=== PATIENT | female | born 1965 | race African-American/Black ===

== ENCOUNTER → 2017-01-18 | Outpatient (CLI) | payer BC ==
[2017-01-18 15:18] LABS: BASO % 1 % (0-3); EOS % 1 % (0-3); HEMATOCRIT 40.4 % (36.0-47.0); LYMPH # 2.1 x10^3/uL (1.0-4.8); LYMPH % 31 % (24-48); MEAN CORPUSCULAR HEMOGLOBIN 30 pg (25-35); MEAN CORPUSCULAR HGB CONC 35 g/dL (31-37); MEAN CORPUSCULAR VOLUME 87 fL (79-100); MONO % 8 % (0-9); NEUT % 60 % (31-73); PLATELET COUNT 246 x10^3/uL (140-400); RED BLOOD COUNT 4.66 x10^6/uL (3.50-5.40); RED CELL DISTRIBUTION WIDTH 13.6 % (11.5-14.5); WHITE BLOOD COUNT 6.8 x10^3/uL (4.0-11.0)
[2017-01-18 15:22] LABS: BILIRUBIN,URINE NEGATIVE (NEG); GLUCOSE,URINE NEGATIVE (NEG); NITRITE,URINE NEGATIVE (NEG); PROTEIN,URINE NEGATIVE (NEG-TRACE); UROBILINOGEN,URINE 0.2 mg/dL (0.2 mg/dL)
[2017-01-18 15:33] LABS: BACTERIA,URINE 0 /HPF (0-FEW); SQUAMOUS EPITHELIAL CELL,UR FEW /LPF; WBC,URINE RARE /HPF (0-4)
--- NOTE | 2017-01-18 15:39 | EKG ---
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
[2017-01-18 15:45] LABS: ALBUMIN/GLOBULIN RATIO 1.2 (1.0-1.7); CREATININE 0.9 mg/dL (0.6-1.0); GFR 79.6; TOTAL BILIRUBIN 0.5 mg/dL (0.2-1.0); TOTAL PROTEIN 7.3 g/dL (6.4-8.2)
--- NOTE | 2017-01-18 16:40 | RAD ---
PA and lateral chest radiographs 01/18/2017 Clinical history: Preoperative evaluation prior to hysterectomy. PA and lateral digital radiographs of the chest were obtained. No previous studies are available for comparison. The cardiac silhouette is normal in size configuration. The thoracic aorta is mildly tortuous. Soft tissue fullness is seen within the left hilum/mediastinum. Further evaluation with a CT scan of the chest with contrast is recommended. No acute pulmonary infiltrate is seen. No pleural effusion or pneumothorax is noted. Mild degenerative changes are seen involving the thoracic spine. Impression: Soft tissue fullness is seen within the left hilum/left mediastinum. Further evaluation with a CT scan of the chest with contrast is recommended.
[2017-01-19 05:19] LABS: ESTRADIOL LEVEL <5.0 pg/mL (.); FSH 53.7 mIU/mL (.); LUTEINIZING HORMONE 27.9 mIU/mL (.)
== END | disposition home or self-care (01) ==
LOC: SURGPAT 14:25
PROVIDERS: ATTEND Obstetrics & Gynecology
DX: Z01.818 Encounter for other preprocedural examination (principal)
CPT/HCPCS: 36415; 71020; 80053; 81001; 82670; 83001; 83002; 85027; 93005

== ENCOUNTER → 2017-01-26 | Outpatient (CLI) | payer BC ==
[~2017-01-26] MED LIST: CONTRAST GIVEN MC PRN; IOHEXOL 300 MG/ML 100ML VIAL. IV ONE
--- NOTE | 2017-01-26 11:17 | KCIC ---
CT CHEST W/CONTRAST dated 01/26/2017 9:00 AM Indication: Soft tissue fullness seen on recent chest x-ray Comparison: January 18, 2017 chest radiographs. Technique: After bolus of intravenous contrast, CT imaging was performed of the chest. Multiplanar reconstruction images submitted. One or more of the following individualized dose reduction techniques were utilized for this examination: 1. Automated exposure control 2. Adjustment of the mA and/or kV according to patient size 3. Use of iterative reconstruction technique. Findings: Corresponding with the radiographic findings, there is a fairly large somewhat heterogeneously enhancing and probably partially necrotic mass in the AP window apparently emanating from the lateral aspect of the mediastinum rather than in the lung parenchyma. This measures up to 5 cm AP by 4 cm transverse by 5.3 cm cc. This is near the left lateral margin of the aortic arch although no clear communication, thin intervening fat plane. This is also near the left lateral margin of the main pulmonary artery and also the anterior margin of the left main pulmonary artery also with intervening fat plane. No other significantly enlarged chest lymphadenopathy is identified. There is very small dependent left pleural effusion. There is a small 0.4 cm left upper lobe nodule axial image 18 series 2, slightly indistinct peripheral margin. There is small 0.3 cm groundglass nodule left upper lobe axial image 13. The major airways are patent. There is no pneumothorax. Thoracic aortic caliber is within normal limits, no intraluminal flap. There is a 2 cm hypodense lesion of the left lobe of the liver, density measurements of a cyst. There is also probable cyst in the right renal hilum. There is a small sclerotic focus of the posterior right T9 vertebral body otherwise too small to characterize although may be a small bone island. There is no significant abnormality of the visualized thyroid gland. IMPRESSION: 1. There is a large heterogeneously enhancing and probably necrotic mass in the AP window centered in the lateral aspect of the mediastinum. Primary concern would be for malignancy such as from lymphoma or metastasis, less typical consideration such as nerve sheath tumor. There is very small left pleural effusion. There are couple of very small left upper lobe pulmonary nodules. Electronically signed by: Rafat Galindo MD (01/26/2017 11:13 AM)
== END | disposition home or self-care (01) ==
LOC: KCIC CT 09:01
PROVIDERS: ATTEND Obstetrics & Gynecology
DX: J90 Pleural effusion, not elsewhere classified (principal)
CPT/HCPCS: 71260; Q9967

== ENCOUNTER → 2017-02-23 | Outpatient (CLI) | payer BC ==
[2017-02-23] VITALS (15 sets, daily range): BP systolic 95–133; BP diastolic 58–75
[~2017-02-23] VITALS: Ht 158.8 cm; Wt 73.5 kg
[~2017-02-23] MED LIST changes: -CONTRAST GIVEN MC PRN; +GELATIN SPONGE SIZE 12-7MM SPONGE. ONE; -IOHEXOL 300 MG/ML 100ML VIAL. IV ONE; +LIDOCAINE 1% / SOD BICARB 8.4% 20 ML VIAL. IJ ONE; +MIDAZOLAM HCL/PF 2 MG/2 ML VIAL. IV ONE; +MIDAZOLAM HCL/PF 2 MG/2 ML VIAL. ONE; +fentaNYL PF VIAL 100 MCG/2 ML VIAL IV ONE; +fentaNYL PF VIAL 100 MCG/2 ML VIAL ONE
[2017-02-23 07:27] LABS: BASO % 1 % (0-3); EOS % 2 % (0-3); HEMATOCRIT 42.3 % (36.0-47.0); HEMOGLOBIN 14.3 g/dL (12.0-15.5); LYMPH # 2.6 x10^3/uL (1.0-4.8); LYMPH % 44 % (24-48); MEAN CORPUSCULAR HEMOGLOBIN 30 pg (25-35); MEAN CORPUSCULAR HGB CONC 34 g/dL (31-37); MEAN CORPUSCULAR VOLUME 88 fL (79-100); MONO % 10 % (0-9); NEUT % 44 % (31-73); PLATELET COUNT 279 x10^3/uL (140-400); RED BLOOD COUNT 4.84 x10^6/uL (3.50-5.40); RED CELL DISTRIBUTION WIDTH 13.8 % (11.5-14.5); WHITE BLOOD COUNT 6.1 x10^3/uL (4.0-11.0)
[2017-02-23 07:35] LABS: PROTHROMBIN TIME PATIENT 12.5 SEC (11.7-14.0)
--- NOTE | 2017-02-23 09:02 | RAD ---
CT-guided biopsy, left mediastinal mass 02/23/2017 Indication: Left mediastinal mass Discussion: The risks and benefits of the procedure were discussed patient. Informed consent was obtained. The patient or to the CT scanner and placed in supine position. A timeout procedure was performed. CT imaging redemonstrates a mediastinal mass in the prevascular space on the left. A transthoracic approach was chosen. 1% lidocaine without epinephrine was administered to the anterior chest wall. A 19-gauge guiding needle was advanced into the periphery of the mass with intermittent CT guidance. Multiple 20-gauge core biopsy samples were obtained. Samples were divided approximately formalin and RPMI fluid. The guiding needle was removed. Manual pressure was held. Repeat CT demonstrates no pneumothorax or other immediate complication. Sterile dressing was applied. The procedure was performed conscious sedation including continuous cardiopulmonary monitoring via dedicated sedation nurse. Sedation time: 25 minutes Impression: Successful CT-guided biopsy of left mediastinal mass
--- NOTE | 2017-02-23 11:25 | RAD ---
Indication post lung biopsy. A single view of the chest was obtained approximately 2 1/2 following left lung biopsy.. Known mass in the left lung is reproduced. No complication is seen associated with the biopsy and specifically no pneumothorax is seen. IMPRESSION: No evidence of pneumothorax post left lung biopsy
--- NOTE | 2017-02-28 15:57 | PATHOLOGY ---
PATHOLOGY REPORT * * * * * * * * FINAL DIAGNOSIS: Left hilar/mediastinal mass, CT-guided biopsy: - Extensive hemorrhage. See comment. COMMENT: Sections of the left hilar/mediastinal mass needle biopsy reveal several cores of tissue showing extensive hemorrhage. There are small foci of focally edematous fibrous tissue, both within and surrounding the areas of hemorrhage containing clusters of relatively small cells having scanty to modest amounts of eosinophilic cytoplasm and possessing small rounded to ovoid bland appearing nuclei. A portion of the specimen is submitted for marker studies by flow cytometry. The specimen has a viability of 93.1%. There is no flow immunophenotypic evidence of a lymphoproliferative disorder. A panel of immunoperoxidase stains is obtained and yields the following results: AE1/AE3: cellular areas negative Placental alkaline phosphatase: cellular areas negative Glypican-3: cellular areas negative AFP: cellular areas negative Synaptophysin: cellular areas negative CD56: cellular areas negative S-100: cellular areas negative Vimentin: cellular areas positive CD45: few cells within cellular areas positive Thus the cellular areas in the small foci of fibrous tissue within and surrounding the areas of hemorrhage appear to consist of stromal cells and a few inflammatory cells. As such, the findings are non-diagnostic. There is no evidence of malignancy within this material. Correlate with clinical and radiographic findings. (JPM:mgr; 02/28/2017) Special Stains Performed: Immunoperoxidase stains for AE1/AE3, PLAP, Glypican-3, AFP, Synaptophysin, CD56, S-100, Vimentin, CD45. REPORT ELECTRONICALLY SIGNED BY: Ravin Perea M.D. DATE/TIME: 02/28/2017 15:56 * * * * * * * * GROSS PATHOLOGY: Received in formalin labeled "left hilar biopsy," are three distinct needle cores of louise soft tissue ranging from 0.4 to 1.0 cm in length, which are submitted entirely in cassette A1. A separate specimen is submitted in RPMI and forwarded to [facility] for marker studies by flow cytometry. (JPM; 02/23/17) INITIAL CPT CODE(S): A; 59879, 80905, 25618, 13212, 02143, 73198, 33013, 27300, 09404, 06143 Professional services performed by [facility] [place] [id number] [place] [address] Technical services performed by [facility] at [address] [place] [address], [place] [address], [place] [address]. SPECIMEN(S) RECEIVED: A.Left hilar mass CLINICAL HISTORY: Left hilar/mediastinal mass PATIENT: ROXANA ANNE Amisha /AGE: 10 1965 (Age: 51) PATIENT #: [id number] ALT CASE #: SPECIMEN COLLECTION DATE: 02/23/2017 SPECIMEN RECEIVED DATE: 02/23/2017 [facility] - [address] [place] [address] - PHONE: [phone] * * * END OF REPORT * * *
== END | disposition home or self-care (01) ==
LOC: INTRAD 07:09
PROVIDERS: ATTEND Internal Medicine Pulmonary Disease
DX: J98.59 Other diseases of mediastinum, not elsewhere classified (principal); Z88.0 Allergy status to penicillin; Z88.2 Allergy status to sulfonamides; Z79.01 Long term (current) use of anticoagulants
CPT/HCPCS: 32405; 36415; 71010; 77012; 85027; 85610; 88184; 88185; 99152; 99153; C1887; J2250; J3010

== ENCOUNTER → 2017-07-22 | Outpatient (CLI) | payer BC ==
[2017-02-23 11:00] VITALS: BP 114/71
[~2017-07-22] MED LIST changes: +CONTRAST GIVEN MC PRN; -GELATIN SPONGE SIZE 12-7MM SPONGE. ONE; +IOHEXOL 300 MG/ML 100ML VIAL. IV ONE; -LIDOCAINE 1% / SOD BICARB 8.4% 20 ML VIAL. IJ ONE; -MIDAZOLAM HCL/PF 2 MG/2 ML VIAL. IV ONE; -MIDAZOLAM HCL/PF 2 MG/2 ML VIAL. ONE; -fentaNYL PF VIAL 100 MCG/2 ML VIAL IV ONE; -fentaNYL PF VIAL 100 MCG/2 ML VIAL ONE
--- NOTE | 2017-07-22 14:17 | RAD ---
Indication: Mediastinal mass. Technique: Axial images and coronal and sagittal reformatted images are provided. 75 mL of intravenous Omnipaque 300 was administered without complication. Comparison is from January 26, 2017. One or more of the following individualized dose reduction techniques were utilized for this examination: 1. Automated exposure control 2. Adjustment of the mA and/or kV according to patient size 3. Use of iterative reconstruction technique Findings: Heterogeneously predominately peripherally enhancing prevascular mass is similar in size to prior exam, 5.1 x 3.1 cm. No new mediastinal mass is apparent. Heart is not enlarged. Central airways are patent. There is no airspace disease. There is no pleural effusion. Vague groundglass nodule on the left on image 17 is stable, 4 mm. Second nodule noted previously has resolved. No new nodule is apparent. There is minimal dependent atelectasis. There are mild degenerative changes in the spine. Impression: 1. Prevascular mediastinal mass is stable. Please correlate with results of biopsy performed in February. 2. Stable small groundglass nodule in the left upper lobe. Per Fleischner Society guidelines for groundglass nodules, recommended follow-up is [address].
== END | disposition home or self-care (01) ==
LOC: CT 13:06
PROVIDERS: ATTEND Thoracic Surgery (Cardiothoracic Vascular Surgery)
DX: R22.1 Localized swelling, mass and lump, neck (principal)
CPT/HCPCS: 71260; Q9967